=== PATIENT | female | born 1960 ===

== ENCOUNTER 2016-09-22 11:16 | Day surgery (SDC) | payer OTHER ==
[2016-09-22] MEDS ORDERED: Lactated Ringer's 500 ML IV ONE (11:28)
[2016-09-22] MEDS ORDERED: Succinylcholine 200 mg/10 ml Inj IV ONE (11:29)
[2016-09-22] MEDS ORDERED: Phenylephrine 10 mg/ml Inj ONE (11:29)
[2016-09-22] MEDS ORDERED: ePHEDrine 50 mg/ml Inj ONE (11:39)
[2016-09-22] MEDS ORDERED: Midazolam 2 MG/2 ML VIAL ONE (11:39)
[2016-09-22] MEDS ORDERED: Propofol 10 mg/ml Inj (20 ML) ONE ×2 (11:40→13:00)
[2016-09-22 13:33] VITALS: PULSE 86; TEMP 97; O2SAT 100
[2016-09-22 13:50] VITALS: BP 132/78; RESP 18
== END 2016-09-22 14:37 | disposition home or self-care (01) ==
LOC: H.ENDO 11:16
PROVIDERS: ATTEND Internal Medicine
DX: Z12.11 Encounter for screening for malignant neoplasm of colon (principal); K59.00 Constipation, unspecified; K30 Functional dyspepsia; J45.909 Unspecified asthma, uncomplicated; E11.9 Type 2 diabetes mellitus without complications; E78.5 Hyperlipidemia, unspecified; I10 Essential (primary) hypertension; F17.200 Nicotine dependence, unspecified, uncomplicated; K29.70 Gastritis, unspecified, without bleeding; D12.5 Benign neoplasm of sigmoid colon; K57.30 Diverticulosis of large intestine without perforation or abscess without bleeding